=== PATIENT | female | born 1990 | race African-American/Black ===

== ENCOUNTER 2020-03-31 11:02 | Emergency (ER) | payer MEDICAID, SELFPAY ==
[~2020-03-31] VITALS: Ht 167.6 cm; Wt 136.1 kg
--- NOTE | 2020-03-31 11:29 | NUR ---
Placed in room 8. Placed on radiation monitor, blood pressure machine and pulse oximeter. To gown for exam. Side rails up.
[2020-03-31 11:30] VITALS: BP_SYST 115
--- NOTE | 2020-03-31 11:35 | NUR ---
Patient was brought in by her friend from home for evaluation of SOB. Patient reports being COVID-19 + and 21 weeks . She reports increased SOB over the past 2 days.
--- NOTE | 2020-03-31 11:35 | NUR ---
ER Dr. Caldwell at bedside examining patient.
[2020-03-31 12:12] LABS: CALCIUM 8.9 mg/dL (8.4-11.0); CREATININE 0.71 mg/dL (0.55-1.30); POTASSIUM 3.2 mmol/L (3.5-5.1)
[2020-03-31 12:13] LABS: BASOPHILS % (AUTO) 0.4 % (0.0-2.0); EOSINOPHILS % (AUTO) 0.6 % (0.0-4.0); HEMATOCRIT 37.5 % (36-48); HEMOGLOBIN 12.5 g/dL (12.0-16.0); LYMPHOCYTES # (AUTO) 0.9 K/uL (1.0-5.5); LYMPHOCYTES % (AUTO) 17.9 % (20.5-51.5); MEAN CORPUSCULAR HEMOGLOBIN 26 pg (27-31); MEAN CORPUSCULAR HGB CONC 33 % (32-36); MEAN CORPUSCULAR VOLUME 79 fL (79.0-98.0); MONOCYTES # (AUTO) 0.5 K/uL (0.0-1.0); MONOCYTES % (AUTO) 10.5 % (1.7-9.3); NEUTROPHILS # (AUTO) 3.7 K/uL (1.8-7.7); NEUTROPHILS % (AUTO) 70.6 % (40.0-70.0); PLATELET COUNT (AUTO) 164 K/uL (130-430); RED BLOOD CELL COUNT(AUTO) 4.76 MIL/uL (4.2-6.2); RED CELL DISTRIBUTION WIDTH 13.2 % (9.0-15.0); WHITE BLOOD COUNT (AUTO) 5.2 K/uL (4.8-10.8)
[2020-03-31] MEDS ORDERED: ALBUTEROL MDI INHALATION 8 GM INH INH PRN (12:15)
[2020-03-31] MEDS ORDERED: IPRATROPIUM BROMIDE 17 mCg/ACTUATION, 12.9 GM AER.W.ADAP INH ONE (12:15)
[2020-03-31 12:19] LABS: ALBUMIN 2.8 g/dL (3.4-4.8); TOTAL BILIRUBIN 1.3 mg/dL (0.0-1.0)
--- NOTE | 2020-03-31 12:32 | NUR ---
Patient provided urine sample cup and given instructions on how to give a sample. Patient verbalized understanding.
--- NOTE | 2020-03-31 12:43 | NUR ---
Patient has been speaking on loudly since she was given sample cup. Patient was reminded that we need a urine sample. She verbalized understanding and continued speaking on her phone loudly.
[2020-03-31 12:57] LABS: INR 0.9 (0.8-1.2); PROTHROMBIN TIME 9.2 SECS (9.5-12.5)
--- NOTE | 2020-03-31 13:21 | NUR ---
heart tones auscultated with a HR of 148. Dr. Caldwell notified.
[2020-03-31 14:19] LABS: CLARITY/URINE SLIGHTLY CLOUDY (CLEAR); COLOR,URINE ORANGE (YELLOW); GLUCOSE,URINE NEGATIVE (NEGATIVE); KETONES,URINE 3+ (NEGATIVE); PH,URINE 6.5 (5.0-8.0); PROTEIN URINE TRACE (NEGATIVE)
[2020-03-31 14:20] LABS: BILIRUBIN,URINE 2+ (NEGATIVE); BLOOD, URINE NEGATIVE (NEGATIVE); LEUKOCYTE ESTERASE ,URINE 2+ (NEGATIVE); NITRITE, URINE NEGATIVE (NEGATIVE)
[2020-03-31 14:25] LABS: BACTERIA,URINE None Seen /HPF (None Seen); RBC,URINE NONE SEEN /HPF (0-3)
[2020-03-31 14:26] LABS: TRICHOMONAS,URINE None Seen /HPF (None Seen); YEAST,URINE None Seen /HPF (None Seen)
[2020-03-31] MEDS ORDERED: POTASSIUM CHLORIDE 20 MEQ TAB.PRT.SR ONE (14:28)
[2020-03-31] MEDS ORDERED: POTASSIUM CHLORIDE 20 MEQ TAB.PRT.SR PO ONE (14:30)
--- NOTE | 2020-03-31 15:00 | NUR ---
Patient given written and verbal discharge instructions and verbalizes understanding. ER MD discussed with patient the results and treatment provided. Patient in stable condition. ID arm band removed. IV catheter removed intact and dressing applied, no active bleeding. Rx of Proventil HFA,azithromycin,macrobid given. Patient educated on pain management and to follow up with PMD. Pain Scale 0/10. Opportunity for questions provided and answered. Medication side effect fact sheet provided.
[2020-03-31 15:05] VITALS: BP_SYST 112
[2020-03-31 18:03] LABS: C-REACTIVE PROTEIN QUANT 8.8 mg/dL (0-0.5)
== END 2020-03-31 15:05 | disposition home or self-care (01) ==
LOC: SED 11:02
DX: O26.892 Other specified pregnancy related conditions, second trimester (principal); O23.42 Unspecified infection of urinary tract in pregnancy, second trimester; U07.1 COVID-19; J18.9 Pneumonia, unspecified organism; Z3A.21 21 weeks gestation of pregnancy; Z20.822 Contact with and (suspected) exposure to COVID-19
CPT/HCPCS: 36415; 71045; 80053; 81000-TC; 82550-TC; 82728; 83605; 83615-TC; 83880; 84484; 85025; 85379; 85384-TC; 85610-TC; 85730-TC; 86140; 86886; 86900; 86901; 87040-TC; 87086; 93005; 99285